=== PATIENT | female | born 1950 | race Caucasian/White ===

== ENCOUNTER 2017-01-13 22:45 | Inpatient (IN) | payer OTHER ==
[~2017-01-13] VITALS: Ht 152.4 cm; Wt 47.4 kg
[2017-01-13] MEDS ORDERED: LANTUS SOLOS100 U/M1 SQ (23:11)
[2017-01-13] MEDS ORDERED: XELODA500 MG PO (23:12)
[2017-01-13] MEDS ORDERED: ZOFRAN ODT8 MG PO (23:12)
[2017-01-13] MEDS ORDERED: METOCLOPRAMIDE10 MG PO (23:13)
[2017-01-13 23:39] LABS: BASOPHIL % 0.3 % (0-2); PLATELET COUNT 235 x10^3mcL (130-400)
[2017-01-13 23:42] LABS: RED CELL DISTRIBUTION WIDTH 15.8 % (11.5-14.5)
[2017-01-14 00:07] LABS: BILIRUBIN TOTAL 0.7 mg/dL (0.20-1.00); CALCIUM 8.4 mg/dL (8.5-10.1); CARBON DIOXIDE 33.6 mmol/L (21-32); CREATININE SERUM 1.1 mg/dL (0.6-1.0)
[2017-01-14 00:08] LABS: ALBUMIN 3.2 g/dL (3.4-5.0); TOTAL PROTEIN, SERUM 5.8 g/dL (6.4-8.2)
[2017-01-14 00:09] LABS: CREATINE KINASE 46 U/L (26-192); POTASSIUM SERUM 2.8 mmol/L (3.5-5.1)
[2017-01-14 00:10] LABS: CK-MB < 0.5 ng/mL (0-3.6)
[2017-01-14 01:55] LABS: MAGNESIUM 1.9 mg/dL (1.8-2.4); PHOSPHOROUS 3.3 mg/dL (2.5-4.9)
[2017-01-14 01:57] LABS: CHOLESTEROL/HDL RATIO 2.7
[2017-01-14 02:08] LABS: FREE THYROXINE INDEX 3.2 ug/dL (1.4-4.5); T4(THYROXINE) 8.3 ug/dL (4.7-13.3)
[2017-01-14 02:09] LABS: T3 TOTAL 0.67 ng/mL
[2017-01-14 02:21] LABS: FREE T4 1.5 ng/dL (0.76-1.46)
[2017-01-14 02:58] VITALS: BP 136/71
[2017-01-14 06:05] VITALS: BP 133/79
[2017-01-14 08:38] LABS: UA SPECIFIC GRAVITY 1.015 (1.005-1.035); microscopic required? YES; urine erythrocyte 2+ (NEGATIVE)
[2017-01-14 10:10] VITALS: BP 93/51
[2017-01-14 14:33] VITALS: BP 116/63
[2017-01-14 15:43] LABS: CALCIUM 8.1 mg/dL (8.5-10.1); CARBON DIOXIDE 32.9 mmol/L (21-32); CHLORIDE SERUM 99 mmol/L (98-107); CREATININE SERUM 0.7 mg/dL (0.6-1.0); GFR1 > 60 mL/min; GLUCOSE SERUM 122 mg/dL (74-106); POTASSIUM SERUM 3.9 mmol/L (3.5-5.1); SODIUM SERUM 136 mmol/L (136-145)
[2017-01-14 17:05] VITALS: BP 139/61
[2017-01-14 21:24] VITALS: BP 136/65
[2017-01-15 05:53] VITALS: BP 129/63
[2017-01-15 06:28] LABS: BASOPHIL % 0.5 % (0-2); PLATELET COUNT 182 x10^3mcL (130-400)
[2017-01-15 06:41] LABS: CALCIUM 8.3 mg/dL (8.5-10.1); CARBON DIOXIDE 26.9 mmol/L (21-32); CHLORIDE SERUM 100 mmol/L (98-107); CREATININE SERUM 0.7 mg/dL (0.6-1.0); GFR1 > 60 mL/min; GLUCOSE SERUM 154 mg/dL (74-106); MAGNESIUM 1.8 mg/dL (1.8-2.4); PHOSPHOROUS 2.6 mg/dL (2.5-4.9); POTASSIUM SERUM 3.6 mmol/L (3.5-5.1); SODIUM SERUM 137 mmol/L (136-145)
[2017-01-15 06:42] LABS: RED CELL DISTRIBUTION WIDTH 15.1 % (11.5-14.5)
[2017-01-15 09:36] VITALS: BP 115/58
[2017-01-15 13:22] VITALS: BP 115/58
[2017-01-15 17:14] VITALS: BP 135/63
[2017-01-15 22:05] VITALS: BP 103/51
[2017-01-16 08:55] LABS: CALCIUM 8.7 mg/dL (8.5-10.1); CARBON DIOXIDE 30.8 mmol/L (21-32); CHLORIDE SERUM 104 mmol/L (98-107); CREATININE SERUM 0.6 mg/dL (0.6-1.0); GFR1 > 60 mL/min; GLUCOSE SERUM 81 mg/dL (74-106); MAGNESIUM 1.8 mg/dL (1.8-2.4); PHOSPHOROUS 2.4 mg/dL (2.5-4.9); POTASSIUM SERUM 3.4 mmol/L (3.5-5.1); SODIUM SERUM 143 mmol/L (136-145)
[2017-01-16 08:57] LABS: BASOPHIL % 0.3 % (0-2); PLATELET COUNT 188 x10^3mcL (130-400)
[2017-01-16 10:05] LABS: RED CELL DISTRIBUTION WIDTH 15.5 % (11.5-14.5)
[2017-01-16 10:30] VITALS: BP 129/53
[2017-01-16 13:55] VITALS: BP 102/53
[2017-01-16 15:34] VITALS: BP 106/55
[2017-01-16 21:01] VITALS: BP 110/56
[2017-01-17 05:37] VITALS: BP 130/61
[2017-01-17 06:36] LABS: BASOPHIL % 0.3 % (0-2); PLATELET COUNT 181 x10^3mcL (130-400)
[2017-01-17 06:49] LABS: CALCIUM 8.2 mg/dL (8.5-10.1); CHLORIDE SERUM 107 mmol/L (98-107); CREATININE SERUM 0.6 mg/dL (0.6-1.0); GFR1 > 60 mL/min; GLUCOSE SERUM 129 mg/dL (74-106); MAGNESIUM 1.6 mg/dL (1.8-2.4); PHOSPHOROUS 3.2 mg/dL (2.5-4.9); POTASSIUM SERUM 3.3 mmol/L (3.5-5.1); SODIUM SERUM 142 mmol/L (136-145)
[2017-01-17 09:36] VITALS: BP 120/63
[2017-01-17 12:10] VITALS: BP 98/55
[2017-01-18 06:45] VITALS: BP 115/49
[2017-01-18 09:40] VITALS: BP 107/53
[2017-01-18 12:07] VITALS: BP 133/66
[2017-01-18] MEDS ORDERED: LIPITOR80 MG PO (13:46)
[2017-01-18] MEDS ORDERED: BAY PO (13:46)
[2017-01-18] MEDS ORDERED: GLU500 PO (13:47)
[2017-01-18] MEDS ORDERED: SYM100 PO (13:47)
[2017-01-18] MEDS ORDERED: MECLIZINE HCL12.5 MG PO (13:47)
[2017-01-18 14:10] VITALS: BP 133/66
[2017-01-18 16:45] VITALS: BP 138/60
== END 2017-01-18 21:45 | DRG 64 ==
LOC: ED 22:45 → DU 01-14 01:06
PROVIDERS: Emergency Medicine; ADMIT Family Medicine
DX: I63.9 Cerebral infarction, unspecified (principal); N17.0 Acute kidney failure with tubular necrosis; G81.94 Hemiplegia, unspecified affecting left nondominant side; C25.9 Malignant neoplasm of pancreas, unspecified; I42.9 Cardiomyopathy, unspecified; E87.1 Hypo-osmolality and hyponatremia; E11.65 Type 2 diabetes mellitus with hyperglycemia; E11.51 Type 2 diabetes mellitus with diabetic peripheral angiopathy without gangrene; E87.6 Hypokalemia; I25.10 Atherosclerotic heart disease of native coronary artery without angina pectoris; E87.8 Other disorders of electrolyte and fluid balance, not elsewhere classified; I25.2 Old myocardial infarction; Z79.4 Long term (current) use of insulin; Z68.20 Body mass index [BMI] 20.0-20.9, adult; Z95.1 Presence of aortocoronary bypass graft; Z87.891 Personal history of nicotine dependence
CPT/HCPCS: 83880; 84439; 92526-GN; 92610-GN; 97110-GP; 97116-GP; 97530-GP; A9579; J1815; J3480; J7030; J7042; Q0092

== ENCOUNTER 2018-04-18 00:32 | Inpatient (IN) | payer OTHER ==
[~2018-04-18] VITALS: Ht 152.4 cm; Wt 42.7 kg
[~2018-04-18 00:32] MED LIST: BAY PO; GLU500 PO; LANTUS SOLOS100 U/M1 SQ; LIPITOR80 MG PO; MECLIZINE HCL12.5 MG PO; METOCLOPRAMIDE10 MG PO; SYM100 PO; XELODA500 MG PO; ZOFRAN ODT8 MG PO
[2018-04-18 00:35] VITALS: Ht 152.4 cm; Wt 42.7 kg
[2018-04-18 02:47] LABS: BASOPHIL % 0.6 % (0-2); PLATELET COUNT 224 x10^3mcL (130-400); RED CELL DISTRIBUTION WIDTH 12.3 % (11.5-14.5)
[2018-04-18 03:10] LABS: BILIRUBIN TOTAL 0.3 mg/dL (0.20-1.00); CALCIUM 8.5 mg/dL (8.5-10.1); CARBON DIOXIDE 35.9 mmol/L (21-32); CREATININE SERUM 1.1 mg/dL (0.6-1.0); FREE T4 1.14 ng/dL (0.76-1.46); TOTAL PROTEIN, SERUM 7.2 g/dL (6.4-8.2)
[2018-04-18 03:11] LABS: ALBUMIN 3.2 g/dL (3.4-5.0)
[2018-04-18 03:14] LABS: POTASSIUM SERUM 2.5 mmol/L (3.5-5.1)
[2018-04-18 03:59] LABS: AMPHETAMINE QUAL UR NONE DETECTED (See below); UA SPECIFIC GRAVITY <=1.005 (1.005-1.035); microscopic required? YES; urine erythrocyte TRACE (NEGATIVE)
[2018-04-18 09:48] VITALS: BP 152/68
[2018-04-18 11:27] VITALS: BP 153/58
[2018-04-18] MEDS ORDERED: ATORVASTATIN CA10 M1 PO (13:39)
[2018-04-18] MEDS ORDERED: LEXAPRO10 MG PO (13:40)
[2018-04-18] MEDS ORDERED: PLA75 PO (13:41)
[2018-04-18] MEDS ORDERED: VITD PO (13:42)
[2018-04-18 13:43] LABS: CALCIUM 8.3 mg/dL (8.5-10.1); CARBON DIOXIDE 34.9 mmol/L (21-32); POTASSIUM SERUM 4.3 mmol/L (3.5-5.1)
[2018-04-18] MEDS ORDERED: FLO1 PO (13:44)
[2018-04-18] MEDS ORDERED: PROA PO (13:44)
[2018-04-18] MEDS ORDERED: KEPPRA500 MG PO (13:45)
[2018-04-18] MEDS ORDERED: CREON1 EC2 PO (13:47)
[2018-04-18 17:17] VITALS: BP 150/76
[2018-04-18 21:06] VITALS: BP 160/57
[2018-04-18 22:41] VITALS: BP 134/56
[2018-04-19 05:55] VITALS: BP 154/71
[2018-04-19 06:52] LABS: BASOPHIL % 1.1 % (0-2); PLATELET COUNT 178 x10^3mcL (130-400); RED CELL DISTRIBUTION WIDTH 13.1 % (11.5-14.5)
[2018-04-19 07:03] VITALS: BP 142/66
[2018-04-19 07:42] LABS: BILIRUBIN TOTAL 0.2 mg/dL (0.20-1.00); CALCIUM 8.7 mg/dL (8.5-10.1); CARBON DIOXIDE 29.9 mmol/L (21-32); MAGNESIUM 1.7 mg/dL (1.8-2.4); POTASSIUM SERUM 4.5 mmol/L (3.5-5.1); TOTAL PROTEIN, SERUM 6.4 g/dL (6.4-8.2)
[2018-04-19 07:43] LABS: ALBUMIN 2.7 g/dL (3.4-5.0)
[2018-04-19 08:03] LABS: FREE T4 1.1 ng/dL (0.76-1.46)
[2018-04-19 10:51] VITALS: BP 175/72
[2018-04-19 14:03] VITALS: BP 149/68
[2018-04-19 17:01] VITALS: BP 148/59
[2018-04-19 20:14] VITALS: BP 127/60
[2018-04-20 05:30] VITALS: BP 144/72
[2018-04-20 07:32] LABS: BILIRUBIN TOTAL 0.25 mg/dL (0.20-1.00); CALCIUM 8.7 mg/dL (8.5-10.1); CREATININE SERUM 1.2 mg/dL (0.6-1.0); MAGNESIUM 2.2 mg/dL (1.8-2.4); POTASSIUM SERUM 4.4 mmol/L (3.5-5.1); TOTAL PROTEIN, SERUM 6.5 g/dL (6.4-8.2)
[2018-04-20 07:37] LABS: ALBUMIN 2.9 g/dL (3.4-5.0)
[2018-04-20 09:24] VITALS: BP 144/65
[2018-04-20] MEDS ORDERED: CEFDINIR300 M1 PO (12:13)
[2018-04-20 12:43] VITALS: BP 133/65
[2018-04-20 12:49] VITALS: BP 133/65
== END 2018-04-20 14:02 | disposition home health service (06) | DRG 605 ==
LOC: ED 00:32 → DU 05:33
PROVIDERS: Emergency Medicine; Internal Medicine Pulmonary Disease
DX: S00.83XA Contusion of other part of head, initial encounter (principal); N39.0 Urinary tract infection, site not specified; E87.6 Hypokalemia; E11.9 Type 2 diabetes mellitus without complications; E86.9 Volume depletion, unspecified; E83.42 Hypomagnesemia; I10 Essential (primary) hypertension; F01.50 Vascular dementia, unspecified severity, without behavioral disturbance, psychotic disturbance, mood disturbance, and anxiety; I25.10 Atherosclerotic heart disease of native coronary artery without angina pectoris; I25.2 Old myocardial infarction; Z95.1 Presence of aortocoronary bypass graft; Z85.07 Personal history of malignant neoplasm of pancreas; Z86.73 Personal history of transient ischemic attack (TIA), and cerebral infarction without residual deficits; W06.XXXA Fall from bed, initial encounter; Y92.003 Bedroom of unspecified non-institutional (private) residence as the place of occurrence of the external cause
CPT/HCPCS: 82962; 83880; 84439; 90715; 97110-GP; 97116-GP; J0696; J3475; J3480; J3490; J8597